=== PATIENT | male | born 1955 | race Caucasian/White ===

== ENCOUNTER 2022-01-09 10:11 | Outpatient (CLI) | payer MEDICARE, MEDICAID ==
[~2022-01-09 10:11] MED LIST: ASPI81TA52 PO; FOLI1TAB27 PO; METO-395 PO; OMEP40CA21 PO; thiamine tablet PO
== END 2022-01-09 23:59 | disposition home or self-care (01) ==
LOC: RAD 10:11
PROVIDERS: ATTEND Student in an Organized Health Care Education/Training Program
DX: I08.1 Rheumatic disorders of both mitral and tricuspid valves (principal); I48.91 Unspecified atrial fibrillation; Z12.2 Encounter for screening for malignant neoplasm of respiratory organs; I25.10 Atherosclerotic heart disease of native coronary artery without angina pectoris; Z72.0 Tobacco use; F17.200 Nicotine dependence, unspecified, uncomplicated
CPT/HCPCS: 71271; 93308

== ENCOUNTER 2022-03-24 06:46 | Emergency (ER) | payer MEDICARE, MEDICAID ==
[~2022-03-24] VITALS: Ht 182.9 cm; Wt 86.4 kg
[~2022-03-24 06:46] MED LIST changes: -ASPI81TA52 PO; -OMEP40CA21 PO
[2022-03-24] MEDS ORDERED: diltiazem 5mg/ml 5ml inj. IV ONE (07:10)
[2022-03-24] MEDS ORDERED: normal saline 1000ML IV soln IVB ONE (07:25)
[2022-03-24 08:37] LABS: BASOPHILS % (AUTO) 0.4 % (0-1); EOSINOPHILS # (AUTO) 0.1 X10'3 (0-0.9); HEMATOCRIT 42.3 % (42.0-52.0); HEMOGLOBIN 14.1 g/dl (14.0-17.9); LYMPHOCYTES # (AUTO) 1.2 X10'3 (1.1-4.8); LYMPHOCYTES % (AUTO) 15.8 % (21-51); MEAN CORPUSCULAR HEMOGLOBIN 31.3 PG (27.0-31.0); MEAN CORPUSCULAR HGB CONC 33.3 g/dL (33.0-36.5); MEAN CORPUSCULAR VOLUME 93.8 FL (78-98); MEAN PLATELET VOLUME 7.4 FL (7.4-10.4); MONOCYTES # (AUTO) 0.7 X10'3 (0-0.9); MONOCYTES % (AUTO) 9.1 % (2-12); NEUTROPHILS # (AUTO) 5.8 X10'3 (1.8-7.7); NEUTROPHILS % (AUTO) 73.7 % (42-75); PLATELET COUNT 259 X10'3 (140-440); RED BLOOD COUNT 4.51 X10'6 (4.70-6.10); RED CELL DISTRIBUTION WIDTH 13.5 % (11.5-14.5); WHITE BLOOD COUNT 7.9 X10'3 (4.5-11.0)
[2022-03-24 08:39] LABS: APTT 28 SECONDS (22-32)
[2022-03-24 08:50] LABS: GLUCOSE 76 MG/DL (70-104); SODIUM 140 MMOL/L (135-145)
[2022-03-24] MEDS ORDERED: metoprolol tartrate 1mg/ml inj IV ONE (08:50)
[2022-03-24 08:51] LABS: ALANINE AMINOTRANSFERASE 27 U/L (12-78); ALBUMIN 3.8 G/DL (3.4-5.0); ALKALINE PHOSPHATASE 88 IU/L (46-116); ANION GAP 14 (8-16); ASPARTATE AMINO TRANSFERASE 28 U/L (10-37); BILIRUBIN,TOTAL 0.4 MG/DL (0.1-1.0); BLOOD UREA NITROGEN 15 MG/DL (7-18); CALCIUM 8.7 MG/DL (8.5-10.1); CHLORIDE 103 MMOL/L (99-107); ETHANOL 0.016 GM/DL (0.0-0.010); MAGNESIUM 1.5 MG/DL (1.5-2.4); POTASSIUM 4.3 MMOL/L (3.5-5.1); TOTAL CARBON DIOXIDE 22.6 MMOL/L (24-32); TOTAL PROTEIN 7.7 G/DL (6.4-8.2); eGFR 75 ML/MIN
[2022-03-24] MEDS ORDERED: metoprolol tartrate 25mg tablet PO ONE (09:55)
[2022-03-24] MEDS ORDERED: flecainide 50mg tablet PO STA (10:03)
[2022-03-24] MEDS ORDERED: METO-395 PO (11:33)
[2022-03-24] MEDS ORDERED: metoprolol tartrate 50mg tablet PO ONE (11:35)
[2022-03-24 11:36] VITALS: BP 128/87
== END 2022-03-24 11:37 | disposition home or self-care (01) ==
LOC: ER 06:47
DX: I48.92 Unspecified atrial flutter (principal); R00.0 Tachycardia, unspecified; R79.1 Abnormal coagulation profile; R42 Dizziness and giddiness; Z78.9 Other specified health status; Z79.899 Other long term (current) drug therapy
CPT/HCPCS: 36415; 71045; 80053; 80320; 83735; 83880; 84484; 85025; 85610; 85730; 93005; 96374; 96375; 99285; J3490; J7030